=== PATIENT | female | born 1965 | race Caucasian/White ===

== ENCOUNTER → 2017-05-15 | Outpatient (CLI) | payer OTHER ==
--- NOTE | 2017-05-15 11:34 | Discharge Instructions ---
Discharge Instructions Procedure Procedure Date: May 15, 2017. Reason for visit: Us Lt Ln/Poss Bx Lt Ln--Latex Or Adhesive Allergy. Discharge Discharge Date: May 15, 2017. Discharge Diagnosis: status post axillary biopsy Instructions Activity Recommendations: Additional Limitations (see below) Return to School/Work: no limitations Recommended Home Diet: No Limitations Provider Instructions: ACTIVITY RECOMMENDATIONS: * No lifting, pushing, pulling or exercising the affected side for three days. RETURN TO SCHOOL/WORK: * You may return to work/school after the procedure, but do not perform any strenuous activities for 24 to 48 hours. MEDICATIONS: * Tylenol (two 325 mg) every four to six hours if needed for mild pain (if not allergic to Tylenol). DIET: * Resume previous diet. SPECIAL CARE INSTRUCTIONS: * Keep biopsy site dry for 24 hours. May shower after 24 hours, but do not soak (bathe) incision. * May remove Tegaderm (plastic patch) tomorrow AFTER showering. * Leave the steri-strips on for one week. Allow the steri-strips to fall off by themselves. If not off after one week, you may remove them. You may place a Bandaid crosswise over the strips, if desired. * Apply ice 10 minutes on and 10 minutes off as needed. * Wear a bra at bedtime to sleep more comfortably for 2-3 days. * Your referring physician should have the results after approximately 5 to 7 business days. * Call for unusual bleeding, fever, drainage, etc or if you have any questions call during normal business hours or after hours call Dr Nicholas, [phone]. FOLLOW UP VISIT: Follow-up with Referring Physician as scheduled. Lashay Vasques Recommendations: Call your doctor if: * Temperature above 101 degrees * Pain not relieved by pain medicine ordered * There is increased drainage or redness from any incision * You have any unanswered questions or concerns. Your Doctors Instructions noted above were prepared by provider Alana Nicholas. Patient Signature Section: Patient Instructions Signature Page Lashelloliver Carrizalesmurray Patient (or Guardian) Signature/Date: I have read and understand the instructions given to me by my caregivers. Caregiver/RN/Doctor Signature/Date: The above-named patient and/or guardian has received patient instructions on this date. + Original Patient Signature Page (only) stays with chart. Please make copy for patient.
--- NOTE | 2017-05-16 07:47 | MAMMOGRAPHY REPORT ---
ULTRASOUND GUIDED BIOPSY LEFT BREAST: 05/15/2017 CLINICAL HISTORY: Abnormal left axillary lymph nodes. PATIENT CONSENT: The procedure, risks and benefits were discussed with the patient and informed writt en consent was obtained. A timeout was performed immediately prior to the procedure. PROCEDURE DESCRIPTION: With ultrasound guidance, aseptic technique, and lidocaine as the local anesth etic (1% lidocaine to anesthetize the skin and 1% lidocaine with epinephrine to anesthetize the deepe r tissues), the dominant palpable mass of concern in the left axilla was sampled 4 times with a 14-ga uge Achieve biopsy needle. Immediately thereafter, with ultrasound guidance, aseptic technique, and lidocaine as the local anesthetic, a metallic localizer clip was placed centrally in the mass. Dire ct pressure was applied to the site immediately post procedure and hemostasis was achieved. The matthew ent tolerated the procedure without complication. She was given wound care instructions. The specime ns were sent to pathology for analysis. IMPRESSION: ULTRASOUND GUIDED BIOPSY Ultrasound-guided core needle biopsy of the palpable abnormal left axillary mass, with clip placement . The patient will receive pathology results from her referring provider. Alana Nicholas M.D. /:05/15/2017 11:43:12 Household Appliances Salesperson: Kay MENA)(Mar[place]), [facility]
--- NOTE | 2017-05-16 07:52 | MAMMOGRAPHY REPORT ---
ULTRASOUND OF LEFT BREAST: 05/15/2017 CLINICAL HISTORY: Newly diagnosed inflammatory left breast cancer. The patient's referring provider noted a palpable enlarged left axillary lymph node, for which further evaluation was recommended. COMPARISON: No prior exams were available for comparison. TECHNIQUE: Real-time targeted ultrasound of the left axilla was performed. FINDINGS: Real-time, high-resolution targeted ultrasound was performed of the left axilla. In the lef t axilla, there is an irregular hypoechoic solid mass which measures 3.3 x 2.0 x 2.4 cm. This corresp onds with the palpable lump felt by the patient and her provider and is highly suspicious for a metas tatic axillary lymph node. Adjacent to this is another morphologically abnormal lymph node which aristides sures 1.5 x 1.8 x 1.0 cm. Other smaller morphologically abnormal lymph nodes are also seen which dem onstrate cortical thickening. Recommend ultrasound-guided biopsy of the palpable dominant left axill vaishali mass. IMPRESSION: ACR BI-RADS CATEGORY 5: HIGHLY SUGGESTIVE OF MALIGNANCY - FOLLOW-UP RECOMMENDED Hypoechoic 3.3 cm irregular mass in the left axilla, which corresponds with the palpable lump and is highly suspicious for metastatic adenopathy. Recommend ultrasound-guided core needle biopsy for furt her evaluation. Other smaller morphologically abnormal lymph nodes are also seen within the left axi lla. The results were discussed with the patient. The biopsy was performed immediately after the ultrasou nd exam. Alana Nicholas M.D. /:05/15/2017 11:41:30 Server Administrator: Kay MENA)(Maricruz), [facility] BI-RADS Code: ACR BI-RADS Category 5: Highly Suggestive Of Malignancy
== END | disposition home or self-care (01) ==
LOC: C.MAMM 11:00
PROVIDERS: ATTEND Internal Medicine Hematology & Oncology
DX: R22.9 Localized swelling, mass and lump, unspecified (principal); C50.912 Malignant neoplasm of unspecified site of left female breast

== ENCOUNTER → 2017-05-22 | Outpatient (CLI) | payer OTHER ==
[~2017-05-22] MED LIST: ACET-749 PO; ASPI-390 PO; CIPR-255 PO; IBUP-1451 PO; MORP1CAP91 PO; ONDA4TAB46 PO; OPTIRAY 320 IV PRN; PHEN-775 PO; PRLSR20 PO
--- NOTE | 2017-05-22 14:22 | DIAGNOSTIC IMAGING REPORT ---
CT (CHEST) THORAX WITH CLINICAL HISTORY: 51 years-old Female presenting with BREAST CA. TECHNIQUE: Multidetector CT imaging of the chest was performed after the administration of intravenous contrast. IV contrast: 93 mL of Optiray 320. A dose lowering technique was used consistent with the principles of ALARA (as low as reasonably achievable). COMPARISON: None. CT DOSE (mGy.cm): The estimated cumulative dose is 1378.10 mGycm. FINDINGS: Technical Instructor topogram: Unremarkable. On soft tissue windows, multiple centrally hypodense mass is evident throughout the enlarged and inflamed left breast. Extensive subcutaneous and deeper edema with left breast skin thickening. Pathologically enlarged and centrally necrotic left axillary lymph nodes. Pathologically enlarged left supraclavicular lymph nodes also suggested (series 4 image 15 and image 2). Marked hypervascularity of the left breast with enlarged collateral vessels. Normal thyroid and thoracic inlet. No gross evidence of internal mammary lymphadenopathy. No mediastinal lymphadenopathy. Normal aorta. Top normal cardiac size. No pericardial or pleural effusion. Hepatic steatosis suspected. On lung windows, Mosaic attenuation in the lungs suggest small airways disease. No focal infiltrate or nodule. Airways patent. On bone windows, normal osseous structures. No destructive osseous lesion. IMPRESSION: 1. Multiple centrally necrotic left breast masses with diffuse inflammation of the left breast and associated skin thickening. Apparent inflammatory change may in part relate to post radiation changes in the proper clinical setting or an inflammatory breast cancer. Lymphadenopathy in the left axilla and left supraclavicular fossa. No mediastinal lymphadenopathy. No evidence of intrathoracic metastatic disease. 2. Suspected small airways disease. 3. Hepatic steatosis. Electronically signed by: Arjun Barbosa M.D. 05/22/2017 2:21 PM Dictated Date/Time: 05/22/2017 2:15 PM
--- NOTE | 2017-05-22 14:33 | DIAGNOSTIC IMAGING REPORT ---
ABDOMEN AND PELVIS CT WITH IV AND ORAL CONTRAST CT DOSE: HISTORY: BREAST CA TECHNIQUE: Multiaxial CT images of the abdomen and pelvis were performed following the use of intravenous and oral contrast. A dose lowering technique was utilized adhering to the principles of ALARA. COMPARISON STUDY: None. FINDINGS: The left breast is partially visualized and demonstrates a normal skin thickening or multiple enhancing masses consistent with the patient's history of breast cancer. This is better appreciated on the same day chest CT. The lung bases are clear. No pneumoperitoneum. No pneumatosis. Bilateral L5 spondylolysis with associated anterolisthesis. No suspicious lytic or blastic osseous lesions within the visualized osseous structures. Hepatic steatosis. No hepatic or splenic masses. The gallbladder, adrenal glands, and pancreas are unremarkable. No retroperitoneal lymphadenopathy. The bladder is now well-distended. The uterus is surgically absent. Tubular cystic structure within the right adnexa which measures 5.1 x 1.2 cm. This favors a hydrosalpinx. No pelvic free fluid. Multiple bilateral punctate renal calculi. Moderate left hydronephrosis to the level of the ureteropelvic junction. No etiology for the obstruction. Therefore, this favors a congenital UPJ obstruction. Severe right hydroureteronephrosis to the level of the mid to distal ureter. At the level of the iliac vessels there is focal soft tissue enhancement within the ureter which corresponds to the site of obstruction. Therefore, this is highly suspicious for a urothelial malignancy. No bowel wall thickening or obstruction. Normal appendix. Irregular soft tissue mass abutting the descending colon within the left lower quadrant on image 291. This contains a small focus of calcification. This measures 3.5 x 2.6 cm. IMPRESSION: 1. Multiple small masses seen throughout the left breast with left breast skin thickening. This corresponds the patient's history of breast malignancy. This is better appreciated on the same day chest CT. 2. A 3.5 x 2.6 cm irregular soft tissue mass within the left lower quadrant abutting the descending colon. This could represent a metastatic focus or an additional primary malignancy. 3. Abnormal soft tissue within the mid to distal right ureter at the level of the iliac vessels resulting in severe right hydroureteronephrosis. This is suspicious for a urothelial malignancy. A metastatic focus is considered less likely but not entirely excluded. 4. Moderate left hydronephrosis suggestive of a congenital UPJ obstruction. An occult underlying lesion cannot be excluded. 5. Additional findings as described above. Electronically signed by: Ramone Martinez M.D. 05/22/2017 2:32 PM Dictated Date/Time: 05/22/2017 2:22 PM
--- NOTE | 2017-05-22 15:57 | DIAGNOSTIC IMAGING REPORT ---
BONE SCAN WHOLE BODY CLINICAL HISTORY: 51 years-old Female presenting with BREAST CA. TECHNIQUE: Planar anterior and posterior imaging of the whole body was performed 3 hours following the intravenous administration of 25.7 mCi Tc-99m MDP. COMPARISON: Chest CT and abdomen and pelvis CT performed earlier the same day. FINDINGS: Diffuse soft tissue uptake in the left breast. Abnormal distention of the right renal collecting system with delayed clearance of radiotracer from the right renal pelvis suggesting hydronephrosis. There is delayed clearance of radiotracer from the calyces of the left kidney though there is no evidence of left hydronephrosis. This could suggest a flaccid collecting system. Expected radiotracer in the urinary bladder. Focal radiotracer uptake evident at L5-S1, which correlates with degenerative changes on CT completed by anterolisthesis of L5 on S1 with a bilateral pars defect of L5. Mild dextrocurvature of the thoracic spine. No other focal radiotracer uptake in the osseous structures. IMPRESSION: 1. No evidence of focal radiotracer uptake in osseous structures to suggest osseous metastatic disease. 2. Degenerative changes at L5-S1. 3. Diffuse abnormal soft tissue uptake in the left breast consistent with the known soft tissue tumor. 4. Right hydronephrosis. 5. Suspected flaccid left renal collecting system. Electronically signed by: Arjun Barbosa M.D. 05/22/2017 3:55 PM Dictated Date/Time: 05/22/2017 3:50 PM
== END | disposition home or self-care (01) ==
LOC: C.NUCL 11:06
PROVIDERS: ATTEND Internal Medicine Hematology & Oncology
DX: C50.412 Malignant neoplasm of upper-outer quadrant of left female breast (principal); N13.30 Unspecified hydronephrosis; K76.0 Fatty (change of) liver, not elsewhere classified

== ENCOUNTER → 2017-05-28 | Outpatient (CLI) | payer OTHER ==
[~2017-05-28] MED LIST changes: -OPTIRAY 320 IV PRN
== END | disposition home or self-care (01) ==
LOC: C.CPL 16:08
PROVIDERS: ATTEND Surgery
DX: C50.919 Malignant neoplasm of unspecified site of unspecified female breast (principal)

== ENCOUNTER → 2017-05-29 | Outpatient (CLI) | payer OTHER ==
[~2017-05-29] MED LIST changes: +LISI-729 PO
== END | disposition home or self-care (01) ==
LOC: C.LAB 15:32
PROVIDERS: ATTEND Urology
DX: N13.30 Unspecified hydronephrosis (principal)

== ENCOUNTER 2017-05-31 08:54 | Day surgery (SDC) | payer OTHER ==
[2017-05-30 08:51] VITALS: Ht 157.5 cm; Wt 78.4 kg
[~2017-05-31] VITALS: Ht 157.5 cm; Wt 78.4 kg
[~2017-05-31 08:54] MED LIST changes: -ACET-749 PO; -CIPR-255 PO; +CIPROFLOXACIN / D5W 400 MG IV SCH; +LACTATED RINGER'S 1000ML 1,000 ML IV SCH; -LISI-729 PO; -PHEN-775 PO
[2017-05-31 09:31] VITALS: BP 193/98; PULSE 106; TEMP 37; O2SAT 95
[2017-05-31] MEDS ORDERED: LIDOCAINE HCL 2% 2 ML VIAL (20MG/ML) ONE (10:08)
[2017-05-31] MEDS ORDERED: PROPOFOL IV EMULSION 10 MG/ML 20 ML VIAL IV ONE (10:08)
[2017-05-31] MEDS ORDERED: FENTANYL CITRATE INJ 50 MCG/1 ML 2 ML VIAL ONE ×2 (10:09→11:08)
[2017-05-31] MEDS ORDERED: MIDAZOLAM HCL 1 MG/ML 2ML VIAL ONE (10:09)
--- NOTE | 2017-05-31 10:41 | History & Physical Bridge Note ---
H&P Re-Evaluation Bridge Note: I have examined the patient, reviewed the History & Physical and in the interval since the performance of the History & Physical I have noted the following changes of clinical significance: No changes noted
[2017-05-31] MEDS ORDERED: ONDANSETRON INJ 2 MG/ML 2 ML VIAL ONE (11:08)
[2017-05-31] MEDS ORDERED: Cysto-Conray II 17.2% 250ML BOTTLE ONE (11:12)
[2017-05-31] MEDS ORDERED: EpHEDrine SULFATE INJ 50 MG/ML AMP IV PRN (11:15)
[2017-05-31] MEDS ORDERED: ATROPINE SULFATE 0.1 MG/ML 5ML SYR IV PRN (11:15)
[2017-05-31] MEDS ORDERED: ONDANSETRON INJ 2 MG/ML 2 ML VIAL IV PRN (11:15)
[2017-05-31] MEDS ORDERED: PROMETHAZINE HCL INJ 6.25 MG in SODIUM CHLORIDE 0.9% 50ML 50 ML IV PRN (11:15)
[2017-05-31] MEDS ORDERED: PHENYLEPHRINE 100MCG/ML 5ML SYR ONE (11:18)
--- NOTE | 2017-05-31 11:48 | [facility] Operative Report ---
Operative Report Operative Date May 31, 2017. Pre-Operative Diagnosis Inflammatory Breast Cancer Post-Operative Diagnosis Inflammatory Breast Cancer Procedure(s) Performed Cystoscopy, Right Ureteroscopy, Right Ueteral Biopsy x5, Laser destruction of Tumor, and Stent Placement (6 Somali by 24 cm) Surgeon Dr. Montana Cinema Operator Surgeon(s) none Estimated Blood Loss 0 ml Specimens A. Right Ureteral Biopsy Drains None 6 Somali by 24 cm stent Anesthesia Type General Complication(s) none Disposition yes Recovery Room / PACU Indications Hydronephrosis Description of Procedure The patient was identified in the preoperative holding area, appropriate informed consents reviewed and completed and she was transported to the operating suite. Upon arrival she received appropriate preoperative antibiotics in the form of ciprofloxacin. Adequate general anesthesia was achieved she was placed in dorsal lithotomy position where she was sterilely prepped and draped in standard fashion. Begin the case by passing a 22 Somali cystoscope with 30 lens. Full inspection of the bladder was conducted. She had no evidence of mucosal disease within the bladder. Ureteral orifices were in orthotopic position both appear to have clear reflux. I turned my attention of the right ureteral orifice and cannulated with a sensor wire and a 5 Somali open-ended catheter. The wire advanced through the ureter without significant difficulty. I then reentered the bladder alongside the wire with a semirigid ureteroscope. Utilizing a second wire to help prop open the ureteral orifice, I was able to advance the scope into the distal ureter. Just at the lower edge of the pelvic osseous structures, I encountered a mass in the lumen of the ureter. This was photographed and documented. I then passed a ureteroscopic biopsy forcep and took 5 distinct biopsies from it all collected and a single container and passed off the table for pathology. The mass itself appeared to be somewhat pedunculated arising from the medial anterior area predominantly. Retrograde pyelogram performed immediately prior to the biopsies revealed a relatively short length of ureter exhibiting a filling defect. I would have estimated 1 cm. There is significant dilation of the ureter proximal to the mass. After the biopsies, I exchange the biopsy forcep for a laser fiber and began laser destruction of this tumor. I began the central aspect of the lumen of work my way to the edge. This easily created a channel through which I was able to advance the scope to inspect the proximal ureter. There is no evidence of any mucosal disease proximal to this mass. I was able to successfully advance the scope to the level of the UPJ. I then withdrew the scope back to the mass and completed my laser destruction of the tumor. At the conclusion, it appeared that all viable and visible tumor had been adequately treated and the lumen was widely patent. Performed a repeat retrograde pyelogram which showed contrast progressing through this area. I concluded the case by passing a 6 Somali by 24 cm double-J ureteral stent. I observed good curl in the kidney as well as the bladder. The patient was extubated and taken to the PACU in stable condition. I attest to the content of the Intraoperative Record and any orders documented therein. Any exceptions are noted below.
[2017-05-31] MEDS ORDERED: SODIUM CHLORIDE 0.9% 1000ML 1,000 ML IV SCH (11:52)
[2017-05-31] MEDS ORDERED: ACET-749 PO (11:54)
[2017-05-31] MEDS ORDERED: PHEN-775 PO (11:54)
[2017-05-31] MEDS ORDERED: CIPR-255 PO (11:54)
--- NOTE | 2017-05-31 11:56 | Discharge Instructions ---
Discharge Instructions Date of Service May 31, 2017. Admission Reason for Admission: Hydronephrosis Discharge Discharge Diagnosis / Problem: Hydronephrosis; ureteral tumor Discharge Goals Goal(s): Decrease discomfort, Improve function, Increase independence, Improve disease control, Prevent Disease Progression Activity Recommendations Activity Limitations: resume your previous activity Lifting Limitations: none Exercise/Sports Limitations: none May Resume Sexual Activity: when tolerated Shower/Bathe: no limitations Driving or Machine Use: resume 1 day after discharge . Instructions / Follow-Up Instructions / Follow-Up Please keep your previously scheduled follow up appointment with Dr. Montana Current Hospital Diet Patient's current hospital diet: Discharge Diet Recommended Diet: Regular Diet Procedures Procedures Performed: Cystoscopy, Right Ureteroscopy, Right Ueteral Biopsy x5, Laser destruction of Tumor, and Stent Placement (6 Gibraltarian by 24 cm) Pending Studies Studies pending at discharge: no Medical Emergencies . Who to Call and When: Medical Emergencies: If at any time you feel your situation is an emergency, please call 911 immediately. . Non-Emergent Contact Non-Emergency issues call your: Urologist Call Non-Emergent contact if: you have a fever, temperature is above 101.5, your pain is not controlled, your pain is worsening . . "Provider Documentation" section prepared by Iain Hightower. . [place] Drug Monitoring Program Search Results: patient reviewed within database, no issues identified
[2017-05-31] MEDS ORDERED: ACETAMINOPHEN/CODEINE 300/30MG TAB PO PRN (12:00)
[2017-05-31] MEDS ORDERED: ACETAMINOPHEN 325 MG TAB PO PRN (12:00)
[2017-05-31] MEDS: FENTANYL CITRATE INJ 50 MCG/1 ML 2 ML VIAL IV PRN ×2 (12:11→12:16)
--- NOTE | 2017-05-31 12:44 | Anesthesiology Progress Note ---
Anesthesia Post Op Note Date & Time May 31, 2017 at 12:44 Vital Signs Pain Intensity: 6 Vital Signs Past 12 Hours Date Time Temp Pulse Resp B/P (MAP) Pulse Ox O2 Delivery O2 Flow Rate FiO2 05/31/17 12:33 36.5 97 Nasal Cannula 2 05/31/17 12:31 78 16 05/31/17 12:31 79 16 96 05/31/17 12:30 163/90 05/31/17 12:26 77 16 97 05/31/17 12:26 78 16 05/31/17 12:25 160/91 05/31/17 12:22 77 16 05/31/17 12:22 77 16 94 05/31/17 12:20 147/100 05/31/17 12:17 85 15 05/31/17 12:17 87 15 92 05/31/17 12:16 147/109 05/31/17 12:12 87 16 05/31/17 12:12 87 16 100 05/31/17 12:11 180/103 05/31/17 12:07 88 20 05/31/17 12:07 88 20 100 05/31/17 12:06 169/98 05/31/17 12:02 87 15 100 05/31/17 12:02 88 15 05/31/17 12:01 82 17 168/99 100 05/31/17 12:01 83 17 05/31/17 11:56 85 14 05/31/17 11:56 84 14 154/94 100 05/31/17 11:51 88 17 146/87 96 05/31/17 11:51 36.3 87 20 146/87 94 Oxymask 15 05/31/17 11:51 87 17 05/31/17 09:31 37 106 18 193/98 (129) 95 Room Air Notes Mental Status: alert / awake / arousable, participated in evaluation Pt Amnestic to Procedure: Yes Nausea / Vomiting: adequately controlled Pain: adequately controlled Airway Patency, RR, SpO2: stable & adequate BP & HR: stable & adequate Hydration State: stable & adequate Anesthetic Complications: no major complications apparent
[2017-05-31 12:50] VITALS: BP 158/83; PULSE 91; TEMP 37.1; O2SAT 93
--- NOTE | 2017-05-31 12:51 | DIAGNOSTIC IMAGING REPORT ---
RETROGRADE INCLUDES KUB CLINICAL HISTORY: RT RETROGRADE AND STENT PLACEMENT COMPARISON STUDY: CT of the abdomen and pelvis May 22, 2017. Fluoroscopy time: 20.9 seconds. FINDINGS: 5 fluoroscopic images from right retrograde exam were submitted for interpretation. These images demonstrate cannulation of the right ureter with wire. Dilatation of the right ureter to the level of the mid sacroiliac joint is noted with caliber change of the right ureter which corresponds to the enhancing lesion consistent with a urothelial lesion on CT of May 22, 2017. Subsequent image demonstrate placement of a right ureteral stent. Proximal aspect of stent projects over right renal pelvis. IMPRESSION: Fluoroscopic images demonstrating placement of a right ureteral stent and suspected urothelial lesion within the right midureter as shown on prior CT. Electronically signed by: Gurdeep Egan M.D. 05/31/2017 12:50 PM Dictated Date/Time: 05/31/2017 12:47 PM
[2017-05-31 13:20] VITALS: BP 155/83; PULSE 83; TEMP 36.6; O2SAT 94
== END 2017-05-31 13:40 | disposition home or self-care (01) ==
LOC: C.ACU 08:54
PROVIDERS: ATTEND Urology
DX: C50.919 Malignant neoplasm of unspecified site of unspecified female breast (principal); N13.30 Unspecified hydronephrosis; N28.89 Other specified disorders of kidney and ureter; J45.909 Unspecified asthma, uncomplicated; K21.9 Gastro-esophageal reflux disease without esophagitis; Z90.710 Acquired absence of both cervix and uterus; Z88.5 Allergy status to narcotic agent; Z91.040 Latex allergy status; N18.9 Chronic kidney disease, unspecified; Z87.442 Personal history of urinary calculi

== ENCOUNTER → 2017-06-10 | Day surgery (SDC) | payer OTHER ==
[~2017-06-10] VITALS: Ht 157.5 cm; Wt 78.6 kg
[~2017-06-10] MED LIST changes: +ACET-749 PO; -CIPROFLOXACIN / D5W 400 MG IV SCH; +LABETALOL HCL IV 5 MG/ML 20ML IV ONE; -LACTATED RINGER'S 1000ML 1,000 ML IV SCH; +LIDOCAINE HCL 2% 2 ML VIAL (20MG/ML) ONE; +LISI-729 PO; +MIDAZOLAM HCL 1 MG/ML 2ML VIAL ONE; +PHEN-775 PO; +PROPOFOL IV EMULSION 10 MG/ML 20 ML VIAL IV ONE; +SODIUM CHLORIDE 0.9% 500ML 500 ML IV ONE
[2017-06-10 10:45] VITALS: Ht 157.5 cm; Wt 78.6 kg
--- NOTE | 2017-06-10 11:36 | Endo History and Physical ---
History & Physical Date of Service: Jun 10, 2017. Chief Complaint: Abnormal Imaging, Breast CA Referring Physician: Carson Ybarra History of Present Illness 51 yo CF who presents for Colonoscopy secondary to abnormal CT imaging. Past Surgical History Hx Cardiac Surgery: No Hx Internal Defibrillator: No Hx Pacemaker: No Hx Abdominal Surgery: Yes (hysterectomy) Hx of Implantable Prosthesis: Yes (Power Port Placement) Hx Post-Op Nausea and Vomiting: No Hx Cancer Surgery: Yes (right breast lumpectomy) Hx Thoracic Surgery: No Hx Orthopedic: No Hx Urinary Tract Surgery: Yes (Stent placement) Family History None Social History Smoking Status: Never Smoker Hx Substance Use: Yes (Prescription) Hx Alcohol Use: No Allergies Coded Allergies: BEE STING (Verified Allergy, Unknown, SWELLING, 06/10/17) Flu Virus Vaccine (Verified Allergy, Unknown, PALPITATIONS, AND SWELLING AT INJ SITE, 06/10/17) Latex1 -Allergic Contact Dermititis (Verified Allergy, Unknown, BLISTERS, 06/10/17) Tramadol (Verified Allergy, Unknown, NAUSEA, VOMITING, HIVES, 06/10/17) Oxycodone (Verified Adverse Reaction, Unknown, VOMITING, AND MIGRAINES, ) Current Medications Reported Home Medications Medications Dose Route/Sig Max Daily Dose Days Date Category Zestril (Lisinopril) 5 Mg Tab 5 Mg PO DAILY 06/10/17 Reported Pyridium (Phenazopyridine Hcl) 200 Mg Tab 200 Mg PO TID 05/31/17 Rx Tylenol W/Codeine #3 (Acetaminophen/Codeine Phosphate) 300 Mg/30 Mg Tab 2 Tab PO Q6 PRN 05/31/17 Rx Zofran (Ondansetron HCl) 4 Mg Tab 4 Mg PO Q4 PRN 05/30/17 Reported Eva Ext Rel (Morphine Sulfate) 20 Mg Cap Unknown Dose PO Q12 PRN 05/30/17 Reported Prilosec (Omeprazole) 20 Mg Capcr 20 Mg PO QAM 05/30/17 Reported Motrin (Ibuprofen) 800 Mg Tab 800 Mg PO Q8H PRN 05/30/17 Reported Excedrin Migraine (Cmlccvp-Ilivtrhqhcyol-Bwemyaxv) 1 Tab Tab 1 Tab PO UD PRN 05/30/17 Reported Vital Signs Weight (Kilograms): 78.64 Height (Feet): 5 Height (Inches): 2 Date Time Temp Pulse Resp B/P (MAP) Pulse Ox O2 Delivery O2 Flow Rate FiO2 06/10/17 11:18 36.6 106 20 201/103 (135) 95 Room Air Physical Exam General Appearance: WD/WN, no apparent distress Respiratory/Chest: Auscultation: breath sounds normal Cardiovascular: Heart Auscultation: RRR Abdomen: Bowel Sounds: normal Inspection & Palpation: soft, non-distended, no tenderness, guarding & rebound Assessment and Plan Assessment: 51 yo CF who presents for Colonoscopy secondary to abnormal CT imaging. Plan: Proceed with colonoscopy.
--- NOTE | 2017-06-10 12:43 | Discharge Instructions ---
Endoscopy Patient Instructions Date / Procedure(s) Performed Jun 10, 2017. Colonoscopy Allergy Information Coded Allergies: BEE STING (Verified Allergy, Unknown, SWELLING, 06/10/17) Flu Virus Vaccine (Verified Allergy, Unknown, PALPITATIONS, AND SWELLING AT INJ SITE, 06/10/17) Latex1 -Allergic Contact Dermititis (Verified Allergy, Unknown, BLISTERS, 06/10/17) Tramadol (Verified Allergy, Unknown, NAUSEA, VOMITING, HIVES, 06/10/17) Oxycodone (Verified Adverse Reaction, Unknown, VOMITING, AND MIGRAINES, ) Discharge Date / Findings Jun 10, 2017. Colon polyp Diverticulosis Internal hemorrhoids Medication Instructions Stopped Medication(s): Last Excedrine Migraine taken on 06/09/17 OK to resume all medications today as prescribed Reported Home Medications Medications Dose Route/Sig Max Daily Dose Days Date Category Zestril (Lisinopril) 5 Mg Tab 5 Mg PO DAILY 06/10/17 Reported Pyridium (Phenazopyridine Hcl) 200 Mg Tab 200 Mg PO TID 05/31/17 Rx Tylenol W/Codeine #3 (Acetaminophen/Codeine Phosphate) 300 Mg/30 Mg Tab 2 Tab PO Q6 PRN 05/31/17 Rx Zofran (Ondansetron HCl) 4 Mg Tab 4 Mg PO Q4 PRN 05/30/17 Reported Eva Ext Rel (Morphine Sulfate) 20 Mg Cap Unknown Dose PO Q12 PRN 05/30/17 Reported Prilosec (Omeprazole) 20 Mg Capcr 20 Mg PO QAM 05/30/17 Reported Motrin (Ibuprofen) 800 Mg Tab 800 Mg PO Q8H PRN 05/30/17 Reported Excedrin Migraine (Obgoqnr-Vadiuhpcvpmzy-Lfmgskuw) 1 Tab Tab 1 Tab PO UD PRN 05/30/17 Reported Provider Instructions Activity Restrictions - No exercising or heavy lifting for 24 hours. - Do not drink alcohol the day of the procedure. - Do not drive a car or operate machinery until the day after the procedure. - Do not make any important decisions or sign important papers in 24 hours after the procedure. Following Day: - Return to full activity which may include returning to work/school. Diet Start your diet with liquids and light foods (jello, soup, juice, toast). Then eat your usual diet if not nauseated. Treatment For Common After Affects For mild abdominal pain, bloating, or excessive gas: - Rest - Eat lightly - Lie on right side Follow-Up Information Follow-up with Carson Ybarra as scheduled Anesthesia Information What You Should Know You have had a procedure that required some medicine to reduce anxiety and discomfort. This treatment is called moderate sedation. After receiving the treatment, you may be sleepy, but you will be able to breathe on your own. The effects of the treatment may last for several hours. Follow these instructions along with Activity/Diet recommendations noted above: * Do NOT do anything where dizziness or clumsiness would be dangerous. * Rest quietly at home today, then you can be up and about tomorrow. * Have a responsible person stay with you the rest of today. * You may have had an I.V. today. If so, you may take the dressing off later today. Recommendations Call your doctor if: * Trouble breathing * Continuous vomiting for more than 24 hours * Temperature above 101 degrees * Severe abdominal pain or bloating * Pain not relieved by pain medicine ordered * There is increased drainage or redness from any incision * A large amount of rectal bleeding greater than 2-3 tablespoons. (If you had a polyp/s removed or have hemorrhoids, a small amount of blood - from the rectum is to be expected.) * You have any unanswered questions or concerns. IN THE EVENT OF A SERIOUS EMERGENCY, GO TO THE NEAREST EMERGENCY ROOM Your discharge instructions were prepared by provider Bernardino Snell. Patient Instructions Signature Page Lashell Carrizalesmurray Patient (or Guardian) Signature/Date: I have read and understand the instructions given to me by my caregivers. Caregiver/RN/Doctor Signature/Date: The above-named patient and/or guardian has received patient instructions on this date. + Original Patient Signature Page (only) stays with chart. Please make copy for patient.
--- NOTE | 2017-06-10 12:55 | GI REPORT ---
Procedure Date: 06/10/2017 12:22 PM Procedure: Colonoscopy Indications: Abnormal CT of the GI tract Medicines: Monitored Anesthesia Care Complications: No immediate complications. Estimated Blood Loss: Estimated blood loss: none. Procedure: Pre-Anesthesia Assessment: - Prior to the procedure, a History and Physical was performed, and patient medications and allergies were reviewed. The patient's tolerance of previous anesthesia was also reviewed. The risks and benefits of the procedure and the sedation options and risks were discussed with the patient. All questions were answered, and informed consent was obtained. Prior Anticoagulants: The patient has taken no previous anticoagulant or antiplatelet agents. ASA Grade Assessment: III - A patient with severe systemic disease. After reviewing the risks and benefits, the patient was deemed in satisfactory condition to undergo the procedure. After I obtained informed consent, the scope was passed under direct vision. Throughout the procedure, the patient's blood pressure, pulse, and oxygen saturations were monitored continuously. The scope was introduced through the anus and advanced to the terminal ileum. The colonoscopy was performed without difficulty. The patient tolerated the procedure well. The quality of the bowel preparation was good. The terminal ileum, ileocecal valve, appendiceal orifice, and rectum were photographed. Findings: The perianal and digital rectal examinations were normal. A 10 mm polyp was found in the sigmoid colon. The polyp was pedunculated. The polyp was removed with a hot snare. Resection and retrieval were complete. Multiple small-mouthed diverticula were found in the sigmoid colon. Non-bleeding internal hemorrhoids were found during retroflexion. The hemorrhoids were small. Impression: - One 10 mm polyp in the sigmoid colon, removed with a hot snare. Resected and retrieved. - Diverticulosis in the sigmoid colon. - Non-bleeding internal hemorrhoids. Recommendation: - Resume previous diet. - Continue present medications. - Repeat colonoscopy for surveillance based on pathology results. - Return to primary care physician as previously scheduled. Bernardino Snell, DO 06/10/2017 12:54:42 PM This report has been signed electronically. Note Initiated On: 06/10/2017 12:22 PM I attest to the content of the Intraoperative Record and orders documented therein, exceptions below
[2017-06-10 13:19] VITALS: BP 146/94; PULSE 89; O2SAT 95
--- NOTE | 2017-06-10 13:26 | Anesthesiology Progress Note ---
Anesthesia Post Op Note Date & Time Jun 10, 2017 at 13:25 Vital Signs Pain Intensity: 4 Vital Signs Past 12 Hours Date Time Temp Pulse Resp B/P (MAP) Pulse Ox O2 Delivery O2 Flow Rate FiO2 06/10/17 13:04 92 18 154/96 (115) 95 Room Air 06/10/17 12:49 88 20 134/84 (101) 95 Room Air 06/10/17 11:18 36.6 106 20 201/103 (135) 95 Room Air Notes Mental Status: alert / awake / arousable, participated in evaluation Pt Amnestic to Procedure: Yes Nausea / Vomiting: adequately controlled Pain: adequately controlled Airway Patency, RR, SpO2: stable & adequate BP & HR: stable & adequate Hydration State: stable & adequate Anesthetic Complications: no major complications apparent
== END | disposition home or self-care (01) ==
LOC: C.GI 10:32
PROVIDERS: ATTEND Internal Medicine
DX: R93.3 Abnormal findings on diagnostic imaging of other parts of digestive tract (principal); D12.5 Benign neoplasm of sigmoid colon; K64.8 Other hemorrhoids; K57.30 Diverticulosis of large intestine without perforation or abscess without bleeding; I10 Essential (primary) hypertension; Z85.3 Personal history of malignant neoplasm of breast; Z90.710 Acquired absence of both cervix and uterus; Z88.5 Allergy status to narcotic agent; Z91.040 Latex allergy status; Z88.7 Allergy status to serum and vaccine

== ENCOUNTER → 2017-06-27 | Outpatient (CLI) | payer BC, OTHER ==
[~2017-06-27] MED LIST changes: -ACET-749 PO; +ACET300T3 PO; -LABETALOL HCL IV 5 MG/ML 20ML IV ONE; -LIDOCAINE HCL 2% 2 ML VIAL (20MG/ML) ONE; -MIDAZOLAM HCL 1 MG/ML 2ML VIAL ONE; +PERFLUTREN LIPID MICROSPHERE (DEFINITY) IV ONE; -PHEN-775 PO; -PROPOFOL IV EMULSION 10 MG/ML 20 ML VIAL IV ONE; -SODIUM CHLORIDE 0.9% 500ML 500 ML IV ONE
--- NOTE | 2017-06-27 17:11 | ECHOCARDIOGRAM REPORT ---
*NOTICE TO RECEIVING LIBERTARIAN AGENCY This information is strictly Confidential and protected under [place] law. [place] law prohibits you from making any further disclosure of this information unless further disclosure is expressly permitted by the written consent of the person to whom it pertains or is authorized by law. A general authorization for the release of medical or other information is not sufficient for this purpose. Hospital accepts no responsibility if the information is made available to any other person, INCLUDING THE PATIENT. Interpretation Summary * Name: MARIE ROBERTS Study Date: 06/27/2017 02:56 PM BP: 146/94 mmHg * Patient Location: [facility] HR: 87 * : 1965 (M/d/yyyy) Gender: Female Height: 62 in * Age: 51 yrs Ethnicity: CA Weight: 163 lb * Ordering Physician: Carson Ybarra * Referring Physician: Carson Ybarra * Performed By: Park Hardy RCS * * Reason For Study: BREAST CA / PRE- CHEMO * BSA: 1.8 m2 * -- Conclusions -- * Image quality was sub-optimal. * Left ventricular systolic function is normal. * Grade I diastolic dysfunction, (abnormal relaxation pattern). Procedure Details * A complete two-dimensional transthoracic echocardiogram was performed (2D, M-mode, Doppler and color flow Doppler). * The study was technically difficult. * A contrast injection of Definity was performed to improve assessment of LV function. * Contrast was injected into an intravenous site in the left arm. * One vial of Definity ultrasound contrast was diluted in normal saline to a total volume of 10 ml. A total of '3' ml of solution was administered during imaging. * Lot # [id number] of Definity utilized for procedure. * Expiration date 19 MAY 2018. * The attending nurse who injected the contrast agent was KEZIA RUIZ RN. Left Ventricle * The left ventricle is normal in size. * There is normal left ventricular wall thickness. * Left ventricular systolic function is normal. * Ejection Fraction = 55-60%. * Grade I diastolic dysfunction, (abnormal relaxation pattern). * The left ventricular wall motion is normal. Right Ventricle * The right ventricle is normal in size and function. Atria * The left atrium is not well visualized. * Right atrium not well visualized. Mitral Valve * The mitral valve is grossly normal. * Significant mitral regurgitation is absent. Tricuspid Valve * The tricuspid valve is not well visualized, but is grossly normal. * Significant tricuspid regurgitation is absent. Aortic Valve * The aortic valve is not well visualized. * No hemodynamically significant valvular aortic stenosis. * There is no significant aortic regurgitation. Pulmonic Valve * The pulmonic valve is not well visualized. Pericardium/Pleural * There is no pericardial effusion. MMode 2D Measurements and Calculations IVSd 0.96 cm IVSs 1.4 cm LVIDd 4.6 cm LVIDs 2.9 cm LVPWd 0.93 cm LVPWs 1.6 cm IVS/LVPW 1.0 FS 36.7 % EDV(Teich) 99.3 ml ESV(Teich) 33.2 ml EF(Teich) 66.6 % EDV(cubed) 99.8 ml ESV(cubed) 25.3 ml EF(cubed) 74.6 % % IVS thick 48.1 % % LVPW thick 71.9 % LV mass(C)d 149.3 grams LV mass(C)dI 85.2 grams/m\S\2 LV mass(C)s 155.7 grams LV mass(C)sI 88.8 grams/m\S\2 SV(Teich) 66.1 ml SI(Teich) 37.7 ml/m\S\2 SV(cubed) 74.5 ml SI(cubed) 42.5 ml/m\S\2 LVAd ap4 36.5 cm\S\2 LVLd ap4 9.0 cm EDV(MOD-sp4) 117.2 ml EDV(sp4-el) 124.7 ml LVAs ap4 23.1 cm\S\2 LVLs ap4 7.2 cm ESV(MOD-sp4) 59.6 ml ESV(sp4-el) 62.3 ml EF(MOD-sp4) 49.2 % EF(sp4-el) 50.1 % LVAd ap2 31.4 cm\S\2 LVLd ap2 8.5 cm EDV(MOD-sp2) 97.7 ml EDV(sp2-el) 98.5 ml LVAs ap2 19.2 cm\S\2 LVLs ap2 6.8 cm ESV(MOD-sp2) 44.1 ml ESV(sp2-el) 46.1 ml EF(MOD-sp2) 54.9 % EF(sp2-el) 53.2 % LVLd %diff -6.51 % EDV(MOD-bp) 111.1 ml LVLs %diff -6.65 % ESV(MOD-bp) 52.8 ml EF(MOD-bp) 52.4 % SV(MOD-sp4) 57.7 ml SI(MOD-sp4) 32.9 ml/m\S\2 SV(MOD-sp2) 53.6 ml SI(MOD-sp2) 30.6 ml/m\S\2 SV(MOD-bp) 58.3 ml SI(MOD-bp) 33.3 ml/m\S\2 SV(sp4-el) 62.5 ml SI(sp4-el) 35.6 ml/m\S\2 SV(sp2-el) 52.4 ml SI(sp2-el) 29.9 ml/m\S\2 Doppler Measurements and Calculations MV E max lee ann 79.8 cm/sec MV A max lee ann 89.0 cm/sec MV E/A 0.90 MV P1/2t max lee ann 80.2 cm/sec MV P1/2t 96.0 msec MVA(P1/2t) 2.3 cm\S\2 MV dec slope 244.9 cm/sec\S\2 MV dec time 0.24 sec Ao V2 max 165.7 cm/sec Ao max PG 11.0 mmHg Ao max PG (full) 7.4 mmHg LV V1 max PG 3.6 mmHg LV V1 max 95.1 cm/sec PA V2 max 111.3 cm/sec PA max PG 5.0 mmHg
== END | disposition home or self-care (01) ==
LOC: C.CPL 14:26
PROVIDERS: ATTEND Internal Medicine Hematology & Oncology
DX: C50.412 Malignant neoplasm of upper-outer quadrant of left female breast (principal)

== ENCOUNTER → 2017-09-06 | Outpatient (CLI) | payer BC ==
[~2017-09-06] MED LIST changes: +ACET-1257 PO; +CIPR-255 PO; +CLR10 PO; +DIPH1TAB87; -IBUP-1451 PO; -MORP1CAP91 PO; -ONDA4TAB46 PO; -PERFLUTREN LIPID MICROSPHERE (DEFINITY) IV ONE; +PHEN95TA14 PO; +PROC10TA PO
[2017-09-06 10:28] LABS: HEMOGLOBIN A1C 5.5 % (4.5-5.6)
== END | disposition home or self-care (01) ==
LOC: C.LAB 09:21
PROVIDERS: ATTEND Physician Assistant
DX: R73.9 Hyperglycemia, unspecified (principal); D64.81 Anemia due to antineoplastic chemotherapy; T45.1X5A Adverse effect of antineoplastic and immunosuppressive drugs, initial encounter

== ENCOUNTER → 2017-09-13 | Outpatient (CLI) | payer BC ==
[2017-09-13 13:08] LABS: BASO % 0.7 %; BASO ABS # 0.03 K/uL (0-0.2); EOS % 5.9 %; EOS ABS # 0.27 K/uL (0-0.5); HEMATOCRIT 26.2 % (37-47); HEMOGLOBIN 8.6 g/dL (12.0-16.0); IG# 0.04 K/uL (0.00-0.02); LYMPH % 16.7 %; LYMPH ABS # 0.76 K/uL (1.2-3.4); MEAN CELL VOLUME 91.3 fL (80-100); MEAN CORPUSCULAR HGB CONC 32.8 g/dl (32-36); MEAN PLATELET VOLUME 8.7 fL (7.4-10.4); MONO % 3.7 %; MONO ABS # 0.17 K/uL (0.11-0.59); NEUT % 72.1 %; NEUT ABS # 3.28 K/uL (1.4-6.5); PLATELET COUNT 334 K/uL (130-400); RED CELL DISTRIBUTION WIDTH CV 19.3 % (11.5-14.5); RED CELL DISTRIBUTION WIDTH SD 64.4 fL (36.4-46.3); WHITE BLOOD COUNT 4.55 K/uL (4.8-10.8)
[2017-09-13 13:29] LABS: ALBUMIN 3.5 gm/dl (3.4-5.0); ALKALINE PHOSPHATASE 77 U/L (45-117); ALT/SGPT 29 U/L (12-78); AST/SGOT 17 U/L (15-37); BLOOD UREA NITROGEN 12 mg/dl (7-18); CALCIUM 9.6 mg/dl (8.5-10.1); CARBON DIOXIDE 27 mmol/L (21-32); CREATININE 0.69 mg/dl (0.60-1.20); GLUCOSE 90 mg/dl (70-99); POTASSIUM 3.9 mmol/L (3.5-5.1); SODIUM 139 mmol/L (136-145); TOTAL PROTEIN 7.1 gm/dl (6.4-8.2)
== END | disposition home or self-care (01) ==
LOC: C.LABSPEC 12:38
PROVIDERS: ATTEND Internal Medicine Hematology & Oncology
DX: C50.412 Malignant neoplasm of upper-outer quadrant of left female breast (principal)

== ENCOUNTER → 2017-09-20 | Outpatient (CLI) | payer BC ==
[2017-09-20 13:21] LABS: BASO % 0.5 %; BASO ABS # 0.02 K/uL (0-0.2); EOS % 8.3 %; EOS ABS # 0.33 K/uL (0-0.5); HEMATOCRIT 27.1 % (37-47); IG# 0.04 K/uL (0.00-0.02); LYMPH ABS # 0.44 K/uL (1.2-3.4); MEAN CELL VOLUME 91.2 fL (80-100); MEAN CORPUSCULAR HEMOGLOBIN 30.3 pg (25-34); MEAN CORPUSCULAR HGB CONC 33.2 g/dl (32-36); MEAN PLATELET VOLUME 8.9 fL (7.4-10.4); MONO % 14.5 %; MONO ABS # 0.58 K/uL (0.11-0.59); NEUT % 64.7 %; NEUT ABS # 2.58 K/uL (1.4-6.5); PLATELET COUNT 364 K/uL (130-400); RED CELL DISTRIBUTION WIDTH CV 18.4 % (11.5-14.5); RED CELL DISTRIBUTION WIDTH SD 61.8 fL (36.4-46.3); WHITE BLOOD COUNT 3.99 K/uL (4.8-10.8)
[2017-09-20 13:47] LABS: ALBUMIN 3.4 gm/dl (3.4-5.0); ALKALINE PHOSPHATASE 79 U/L (45-117); ALT/SGPT 26 U/L (12-78); AST/SGOT 17 U/L (15-37); BLOOD UREA NITROGEN 18 mg/dl (7-18); CALCIUM 9.8 mg/dl (8.5-10.1); CARBON DIOXIDE 26 mmol/L (21-32); CREATININE 0.66 mg/dl (0.60-1.20); GLUCOSE 96 mg/dl (70-99); POTASSIUM 3.9 mmol/L (3.5-5.1); SODIUM 136 mmol/L (136-145); TOTAL PROTEIN 7.4 gm/dl (6.4-8.2)
== END | disposition home or self-care (01) ==
LOC: C.LABSPEC 13:06
PROVIDERS: ATTEND Internal Medicine Hematology & Oncology
DX: C50.412 Malignant neoplasm of upper-outer quadrant of left female breast (principal)

== ENCOUNTER → 2017-09-27 | Outpatient (CLI) | payer BC ==
[2017-09-27 12:24] LABS: BASO ABS # 0.04 K/uL (0-0.2); EOS % 7.3 %; EOS ABS # 0.29 K/uL (0-0.5); HEMATOCRIT 27.7 % (37-47); HEMOGLOBIN 9.2 g/dL (12.0-16.0); IG# 0.03 K/uL (0.00-0.02); LYMPH % 8.8 %; LYMPH ABS # 0.35 K/uL (1.2-3.4); MEAN CELL VOLUME 91.4 fL (80-100); MEAN CORPUSCULAR HEMOGLOBIN 30.4 pg (25-34); MEAN CORPUSCULAR HGB CONC 33.2 g/dl (32-36); MEAN PLATELET VOLUME 8.6 fL (7.4-10.4); MONO % 15.3 %; MONO ABS # 0.61 K/uL (0.11-0.59); NEUT % 66.8 %; NEUT ABS # 2.66 K/uL (1.4-6.5); PLATELET COUNT 361 K/uL (130-400); RED CELL DISTRIBUTION WIDTH CV 17.7 % (11.5-14.5); RED CELL DISTRIBUTION WIDTH SD 58.5 fL (36.4-46.3); WHITE BLOOD COUNT 3.98 K/uL (4.8-10.8)
[2017-09-27 12:50] LABS: ALBUMIN 3.4 gm/dl (3.4-5.0); ALKALINE PHOSPHATASE 84 U/L (45-117); ALT/SGPT 23 U/L (12-78); AST/SGOT 18 U/L (15-37); BLOOD UREA NITROGEN 12 mg/dl (7-18); CALCIUM 9.9 mg/dl (8.5-10.1); CARBON DIOXIDE 27 mmol/L (21-32); CREATININE 0.71 mg/dl (0.60-1.20); GLUCOSE 95 mg/dl (70-99); POTASSIUM 4.1 mmol/L (3.5-5.1); SODIUM 138 mmol/L (136-145); TOTAL PROTEIN 7.4 gm/dl (6.4-8.2)
== END | disposition home or self-care (01) ==
LOC: C.LABSPEC 12:14
PROVIDERS: ATTEND Internal Medicine Hematology & Oncology
DX: C50.412 Malignant neoplasm of upper-outer quadrant of left female breast (principal)

== ENCOUNTER → 2017-10-04 | Outpatient (CLI) | payer BC ==
[2017-10-04 12:34] LABS: BASO % 0.9 %; BASO ABS # 0.03 K/uL (0-0.2); EOS % 7.5 %; EOS ABS # 0.25 K/uL (0-0.5); HEMATOCRIT 26.4 % (37-47); HEMOGLOBIN 8.7 g/dL (12.0-16.0); IG# 0.04 K/uL (0.00-0.02); LYMPH % 13.5 %; LYMPH ABS # 0.45 K/uL (1.2-3.4); MEAN CORPUSCULAR HEMOGLOBIN 30.3 pg (25-34); MEAN PLATELET VOLUME 8.8 fL (7.4-10.4); NEUT % 61.9 %; NEUT ABS # 2.07 K/uL (1.4-6.5); PLATELET COUNT 363 K/uL (130-400); RED CELL DISTRIBUTION WIDTH CV 16.5 % (11.5-14.5); RED CELL DISTRIBUTION WIDTH SD 55.2 fL (36.4-46.3); WHITE BLOOD COUNT 3.34 K/uL (4.8-10.8)
[2017-10-04 12:54] LABS: ALBUMIN 3.3 gm/dl (3.4-5.0); ALKALINE PHOSPHATASE 80 U/L (45-117); ALT/SGPT 24 U/L (12-78); AST/SGOT 18 U/L (15-37); BLOOD UREA NITROGEN 20 mg/dl (7-18); CALCIUM 9.4 mg/dl (8.5-10.1); CARBON DIOXIDE 26 mmol/L (21-32); CREATININE 0.73 mg/dl (0.60-1.20); GLUCOSE 89 mg/dl (70-99); POTASSIUM 3.7 mmol/L (3.5-5.1); SODIUM 137 mmol/L (136-145)
== END | disposition home or self-care (01) ==
LOC: C.LABSPEC 12:20
PROVIDERS: ATTEND Internal Medicine Hematology & Oncology
DX: C50.412 Malignant neoplasm of upper-outer quadrant of left female breast (principal)

== ENCOUNTER → 2017-10-11 | Outpatient (CLI) | payer BC ==
[2017-10-11 13:13] LABS: BASO % 1.5 %; BASO ABS # 0.05 K/uL (0-0.2); EOS % 6.3 %; EOS ABS # 0.21 K/uL (0-0.5); HEMATOCRIT 29.8 % (37-47); HEMOGLOBIN 9.8 g/dL (12.0-16.0); IG# 0.02 K/uL (0.00-0.02); LYMPH % 14.5 %; LYMPH ABS # 0.48 K/uL (1.2-3.4); MEAN CELL VOLUME 92.3 fL (80-100); MEAN CORPUSCULAR HEMOGLOBIN 30.3 pg (25-34); MEAN CORPUSCULAR HGB CONC 32.9 g/dl (32-36); MONO % 13.9 %; MONO ABS # 0.46 K/uL (0.11-0.59); NEUT % 63.2 %; NEUT ABS # 2.09 K/uL (1.4-6.5); PLATELET COUNT 392 K/uL (130-400); RED CELL DISTRIBUTION WIDTH CV 15.9 % (11.5-14.5); RED CELL DISTRIBUTION WIDTH SD 53.1 fL (36.4-46.3); WHITE BLOOD COUNT 3.31 K/uL (4.8-10.8)
[2017-10-11 13:43] LABS: ALBUMIN 3.5 gm/dl (3.4-5.0); ALKALINE PHOSPHATASE 85 U/L (45-117); ALT/SGPT 28 U/L (12-78); AST/SGOT 19 U/L (15-37); BLOOD UREA NITROGEN 13 mg/dl (7-18); CALCIUM 9.8 mg/dl (8.5-10.1); CARBON DIOXIDE 25 mmol/L (21-32); CREATININE 0.66 mg/dl (0.60-1.20); GLUCOSE 94 mg/dl (70-99); POTASSIUM 3.9 mmol/L (3.5-5.1); SODIUM 138 mmol/L (136-145); TOTAL PROTEIN 7.4 gm/dl (6.4-8.2)
== END | disposition home or self-care (01) ==
LOC: C.LABSPEC 12:58
PROVIDERS: ATTEND Internal Medicine Hematology & Oncology
DX: C50.412 Malignant neoplasm of upper-outer quadrant of left female breast (principal)